=== PATIENT | male | born 1955 | race Caucasian/White ===

== ENCOUNTER 2021-06-25 16:54 | Outpatient (CLI) | payer MEDICARE, SELFPAY ==
--- NOTE | 2021-06-25 17:02 | CT_ITS ---
EXAM: CT Left Lower Extremity Without Intravenous Contrast CLINICAL INDICATION: 65 years old, Male; PER OP TECHNIQUE: Helically acquired images were obtained of the left lower extremity without intravenous contrast. 2-D reformats were performed by the technologist. This CT exam was performed using one or more of the following dose reduction techniques: automated exposure control, adjustment of the mA and/or kV according to patient size, and/or use of iterative reconstruction technique. This report was created using [employer] report generation technology. COMPARISON: None. FINDINGS: Bones/joints: Tricompartmental degenerative changes in the knee consistent with osteoarthritis. Mild degenerative changes left hip. Patellar spurs. Well-corticated bone fragment at the tip of the medial malleolus. No acute fracture. No subluxation. Normal alignment. Soft tissues: Unremarkable. No soft tissue swelling or gas. No radiopaque foreign body. CT/Extremity Lower without Contra IMPRESSION: Tricompartmental degenerative changes in the knee consistent with osteoarthritis. Electronically Signed: Davin Blake MD at 0:31 EDT ,
== END 2021-06-25 23:59 | disposition home or self-care (01) ==
LOC: CT 16:59
PROVIDERS: PCP Family Medicine; Referring Provider Specialist; Visit Provider Specialist
DX: M21.162 Varus deformity, not elsewhere classified, left knee (principal)
CPT/HCPCS: 73700

== ENCOUNTER 2021-06-30 09:00 | Outpatient (CLI) | payer MEDICARE, SELFPAY ==
--- NOTE | 2021-06-30 09:02 | EKG12_ITS ---
Test Reason : PREOP Blood Pressure : / mmHG Vent. Rate : 085 BPM Atrial Rate : 085 BPM P-R Int : 142 ms QRS Dur : 084 ms QT Int : 352 ms P-R-T Axes : 037 011 048 degrees QTc Int : 418 ms Normal sinus rhythm Normal ECG Confirmed by RAYMOND MOODY, SRINIVASA ([id number]), deputy editor in chief WINNIE RUTHERFORD ([id number]) on 07/01/2021 10:42:46 AM Referred By: Librado Ricketts Confirmed By:SRINIVASA ANDRADE MD
== END 2021-06-30 23:59 | disposition home or self-care (01) ==
LOC: PSN 09:01
PROVIDERS: PCP Family Medicine; Referring Provider Physician Assistant Surgical; Visit Provider Physician Assistant Surgical
DX: Z01.810 Encounter for preprocedural cardiovascular examination (principal); Z20.822 Contact with and (suspected) exposure to COVID-19
CPT/HCPCS: 87635; 93005; C9803; U0003; U0005

== ENCOUNTER → 2022-04-27 | Outpatient (CLI) | payer MEDICARE, SELFPAY ==
--- NOTE | 2022-04-27 16:54 | CT_ITS ---
STUDY: CT SCAN LOWER EXTREMITY RIGHT. [facility] protocol. REASON FOR EXAM: Male, 66 years old. VARIOUS DEFORMITY NOT ELSEWHERE CLASSIFIED RADIATION DOSAGE (If Supplied By Facility): CTDIvol = ( 18.62 ) mGy, DLP = ( 1355.07 ) mGycm. Individualized dose optimization techniques were used for this CT.? TECHNIQUE: Multiple axial tomographic images of the right lower extremity were obtained without intravenous contrast demonstration. Coronal and sagittal reconstruction was obtained as well. COMPARISON: None. FINDINGS: Small acetabular spur. The joint spaces are unremarkable. Incidental note is made of a prostatic enlargement with indentation at the bladder base. Imaging of the knee joint was obtained. There is a moderate degree of joint space narrowing of the medial compartment of the knee joint. Mild to moderate degree of joint space narrowing and spurring of the patellofemoral joint. Small joint effusion. Imaging of the ankle joint was obtained as well. There is evidence of calcaneal spurs. No fracture or dislocation is seen. CT/Extremity Lower without Contra IMPRESSION: Moderate degree of joint space narrowing involving the medial compartment knee joint as well as patellofemoral joint. Small joint effusion. Electronically Signed: Noah William MD at 13:17 EST ,
== END | disposition home or self-care (01) ==
PROVIDERS: PCP Family Medicine; Visit Provider Specialist
DX: M77.30 Calcaneal spur, unspecified foot (principal); M25.40 Effusion, unspecified joint; M21.161 Varus deformity, not elsewhere classified, right knee
CPT/HCPCS: 73700